=== PATIENT | male | born 1990 | race Caucasian/White ===

== ENCOUNTER 2017-01-24 15:28 | Emergency (ER) | payer SELFPAY ==
[2017-01-24 15:54] LABS: Bilirubin Negative (Negative); Blood, Urine Negative (Negative); Glucose, Urine (Dipstick) Negative (Negative); Ketone, Urine Negative (Negative); Nitrite Negative (Negative); Protein, Urine (Dipstick) Negative (Neg-Trace)
[2017-01-24 15:56] LABS: Bacteria/HPF None Seen HPF (None Seen); Hyaline Casts/LPF 0-3 HYALINE CAST LPF (0-3 Hyaline); RBC/HPF 0-3 HPF (0-3); Squamous Epithelial 0-3 HPF (0-3); WBC/HPF 21-50 HPF (0-3)
[2017-01-24] MEDS ORDERED: Azithromycin 250 MG TAB ONE ×2 (17:33→17:34)
[2017-01-24] MEDS ORDERED: Lidocaine 1% PF 5 ML VIAL ONE (17:33)
[2017-01-24] MEDS ORDERED: cefTRIAXone\\ROCEPHIN 250 MG VIAL ONE ×2 (17:33→17:34)
== END 2017-01-24 18:10 | disposition home or self-care (01) ==
LOC: ERS 15:28
DX: A64 Unspecified sexually transmitted disease (principal); F17.210 Nicotine dependence, cigarettes, uncomplicated
CPT/HCPCS: 81003; 81015; 87491; 87591; 96372; 99406; J0696; J2001

== ENCOUNTER 2021-10-19 20:39 | Emergency (ER) | payer SELFPAY ==
[2021-10-19] MEDS ORDERED: Bupivacaine 0.25% 10 ML VIAL ONE (22:29)
[2021-10-19] MEDS ORDERED: Lidocaine 1% (PF) 30 ML VIAL SC SCH (22:45)
== END 2021-10-19 23:50 | disposition home or self-care (01) ==
LOC: ERS 20:39
DX: S62.334A Displaced fracture of neck of fourth metacarpal bone, right hand, initial encounter for closed fracture (principal); S62.336A Displaced fracture of neck of fifth metacarpal bone, right hand, initial encounter for closed fracture; F17.210 Nicotine dependence, cigarettes, uncomplicated; W22.09XA Striking against other stationary object, initial encounter
CPT/HCPCS: 26605; J2001; S0020